=== PATIENT | female | born 1960 | race African-American/Black ===

== ENCOUNTER 2017-11-10 13:18 | Outpatient (CLI) | payer MEDICAID, OTHER ==
--- NOTE | 2017-11-10 13:36 | RAD ---
CHEST TWO VIEWS: HISTORY: Dyspnea. COMPARISON: None. FINDINGS: Atherosclerosis of the aorta. Normal cardiac silhouette. Pulmonary vessels and hilum are normal. N o consolidation or mass. No pneumothorax or osseous abnormalities. IMPRESSION: 1. Atherosclerosis. 2. No acute cardiopulmonary process. POS: [facility]
== END 2017-11-10 13:19 | disposition home or self-care (01) ==
LOC: RAD 13:18
PROVIDERS: ATTEND Internal Medicine Critical Care Medicine
DX: R06.00 Dyspnea, unspecified (principal); I70.0 Atherosclerosis of aorta
CPT/HCPCS: 71046

== ENCOUNTER 2017-12-05 08:31 | Outpatient (CLI) | payer OTHER ==
--- NOTE | 2017-12-05 09:50 | RAD ---
TWO VIEW CHEST: HISTORY: Dyspnea. COMPARISON: 11/10/2017. The lungs appear clear of infiltrate. Heart and mediastinum unremarkable. IMPRESSION: No acute process identified. POS: [facility]
== END 2017-12-05 08:32 | disposition home or self-care (01) ==
LOC: RAD 08:31
PROVIDERS: ATTEND Internal Medicine Critical Care Medicine
DX: R06.00 Dyspnea, unspecified (principal)
CPT/HCPCS: 71046